=== PATIENT | male | born 1960 | race Caucasian/White ===

== ENCOUNTER 2020-08-16 17:51 | Emergency (ER) | payer BC ==
[2020-08-16 17:56] VITALS: BP 164/101; PULSE 65; RESP 16; TEMP 98.3
[2020-08-16] MEDS ORDERED: LIDOCAINE 1% INJ 10MG/ML (20 ML MDV) SQ ONE (18:00)
[2020-08-16] MEDS ORDERED: DIPH,PERTUS(ACELL)TETVAC-LF 0.5 ML VIAL IM ONE (18:01)
[2020-08-16] MEDS ORDERED: BACITRACIN OINT 1 EACH PACKET TOPICAL ONE (18:25)
--- NOTE | 2020-08-16 18:31 | ED ---
General Adult HPI - General Chief complaint: Wound/Laceration Stated complaint: thumb lac Time Seen by Provider: 08/16/20 18:00 Source: patient, RN notes reviewed, old records reviewed Mode of arrival: ambulatory Limitations: no limitations - History of Present Illness Initial comments: 59-year-old male presenting with laceration to left thumb. Patient was cutting drywall, and slipped with a utility knife, lacerating the palmar and medial aspect of the left thumb. No other injury. Patient is uncertain of tetanus status. - Related Data Home Medications Medication Instructions Recorded Confirmed Calcium Carbonate [Calcium] 600 mg PO DAILY 08/01/15 08/01/15 Joint Health Packs 1 pack PO DAILY 08/01/15 08/01/15 Magnesium 200 mg PO DAILY 08/01/15 08/01/15 Multivitamins, Thera [Multivitamin] 1 tab PO DAILY 08/01/15 08/01/15 [place]-3 Fatty Acids/Fish Oil [Fish 1 cap PO DAILY 08/01/15 08/01/15 Oil 1,000 mg Softgel] Vitamin B Complex 1 cap PO DAILY 08/01/15 08/01/15 Previous Rx's Medication Instructions Recorded Cephalexin [Keflex] 500 mg PO Q12HR #20 cap 08/16/20 Allergies Allergy/AdvReac Type Severity Reaction Status Date / Time No Known Allergies Allergy Verified 08/01/15 10:32 Review of Systems ROS Statement: Those systems with pertinent positive or pertinent negative responses have been documented in the HPI. ROS Other: All systems not noted in ROS Statement are negative. Past Medical History Past Medical History: Osteoarthritis (OA) Additional Past Medical History / Comment(s): 08/01/15 Pt presented to [facility] ER with L flank pain which woke him this AM about 0400. Pain radiates from the L flank towrds the L groin and towards genital. He is being admitted with clinical impression of calulus of the kidney. History of Any Multi-Drug Resistant Organisms: None Reported Past Surgical History: Appendectomy, Orthopedic Surgery, Tonsillectomy Additional Past Surgical History / Comment(s): R heel surgery after nail injury. Past Anesthesia/Blood Transfusion Reactions: No Reported Reaction Past Psychological History: No Psychological Hx Reported Smoking Status: Never smoker Past Alcohol Use History: None Reported Past Drug Use History: None Reported - Past Family History Father Family Medical History: Cancer Additional Family Medical History / Comment(s): Father of cancer-pt unsure which type. Mother Family Medical History: No Reported History Additional Family Medical History / Comment(s): Mother is healthy and 72 yrs old. General Exam Limitations: no limitations General appearance: alert, in no apparent distress Head exam: Present: atraumatic, normocephalic Eye exam: Present: normal appearance, PERRL ENT exam: Present: normal exam Neck exam: Present: normal inspection. Absent: tenderness, meningismus Respiratory exam: Present: normal lung sounds bilaterally. Absent: respiratory distress, wheezes Cardiovascular Exam: Present: regular rate, normal rhythm GI/Abdominal exam: Present: soft. Absent: distended, tenderness Extremities exam: Present: other (37 laceration on the left thumb palmar and medial portion. This laceration is deep, patient has good range of motion, do not specifically see a tendon injury.) Course Vital Signs 08/16/20 17:52 Temperature 98.3 F Pulse Rate 65 Respiratory 16 Rate Blood Pressure 164/101 O2 Sat by Pulse 100 Oximetry Procedures - Laceration Laceration #1 Consent Obtained: verbal consent Indication: laceration Site: hand Size (cm): 3 Description: linear Depth: simple, single layer, involves muscle layer Anesthetic Used: lidocaine 1% Anesthesia Technique: local infiltration Amount (mls): 5 Pre-repair: wound explored, irrigated extensively Type of Sutures: nylon Size of Sutures: 4-0 Number of Sutures: 6 Technique: simple, interrupted Complications: pain Patient Tolerated Procedure: well Additional Comments: Patient has good range of motion, the laceration is quite deep but I do not specifically see a tendon injury. Medical Decision Making - Medical Decision Making Laceration is repaired after copious irrigation with tap water, wound is cleansed. The laceration is deep but I do not specifically see a tendon injury and the patient has good range of motion of the left thumb. Laceration repaired with nylon suture. Patient will be started on antibiotics, he will follow-up with hand surgeon who he has seen in the past with various injuries. Disposition Clinical Impression: Laceration, Laceration of hand Disposition: HOME SELF-CARE Condition: Good Instructions (If sedation given, give patient instructions): Laceration (ED), Care For Your Stitches (DC) Prescriptions: Cephalexin [Keflex] 500 mg PO Q12HR #20 cap Is patient prescribed a controlled substance at d/c from ED?: No Referrals: Mariana Sierra MD [Primary Care Provider] - 1-2 days Ruslan Vizcaino DO [Doctor of Osteopathic Medicine] - 1-2 days Time of Disposition: 18:30
== END 2020-08-16 18:47 | disposition home or self-care (01) ==
LOC: EC 17:51
DX: S61.012A Laceration without foreign body of left thumb without damage to nail, initial encounter (principal); M19.90 Unspecified osteoarthritis, unspecified site; W26.0XXA Contact with knife, initial encounter
CPT/HCPCS: 90715; 99282; 90471; 12042; J2001

== ENCOUNTER 2020-09-01 11:28 | Emergency (ER) | payer BC ==
[2020-09-01 12:15] VITALS: BP 145/82; PULSE 58; RESP 20; TEMP 98
--- NOTE | 2020-09-01 12:43 | XR ---
EXAMINATION TYPE: XR hand complete RT DATE OF EXAM: 09/01/2020 COMPARISON: None HISTORY: Pain, laceration CT DLP: mGycm Automated exposure control for dose reduction was used. Contrast: None Technique: Three-view right hand FINDINGS: No acute fracture or dislocation is evident. Soft tissues appear unremarkable. No radiopaque foreign bodies are evident. Some chronic changes appear to be in the proximal diaphyseal fifth metacarpal.. IMPRESSION: 1. NO ACUTE OSSEOUS ABNORMALITY. 2. NO RADIOPAQUE FOREIGN BODIES.
[2020-09-01] MEDS ORDERED: LIDOCAINE 1% INJ 10MG/ML (20 ML MDV) SQ ONE (13:03)
--- NOTE | 2020-09-01 13:57 | ED ---
General Adult HPI - General Chief complaint: Extremity Injury, Upper Stated complaint: Hand injury Time Seen by Provider: 09/01/20 13:03 Source: patient Mode of arrival: ambulatory Limitations: no limitations - History of Present Illness Initial comments: 60-year-old male without a significant past medical history presents to the emergency department for a chief complaint of right hand laceration. Patient reports he got his hand stuck between a truck bed and a forklift. States that it caused a laceration. Patient states he can move his fingers without difficulty. Tetanus is up-to-date. He denies any other injuries.Patient has no other complaints at this time including shortness of breath, chest pain, abdominal pain, nausea or vomiting, headache, or visual changes. - Related Data Home Medications Medication Instructions Recorded Confirmed Calcium Carbonate [Calcium] 600 mg PO DAILY 08/01/15 08/01/15 Joint Health Packs 1 pack PO DAILY 08/01/15 08/01/15 Magnesium 200 mg PO DAILY 08/01/15 08/01/15 Multivitamins, Thera [Multivitamin] 1 tab PO DAILY 08/01/15 08/01/15 [place]-3 Fatty Acids/Fish Oil [Fish 1 cap PO DAILY 08/01/15 08/01/15 Oil 1,000 mg Softgel] Vitamin B Complex 1 cap PO DAILY 08/01/15 08/01/15 Previous Rx's Medication Instructions Recorded Cephalexin [Keflex] 500 mg PO Q12HR #20 cap 08/16/20 Cephalexin [Keflex] 500 mg PO Q6HR 5 Days #20 cap 09/01/20 Allergies Allergy/AdvReac Type Severity Reaction Status Date / Time No Known Allergies Allergy Verified 09/01/20 12:15 Review of Systems ROS Statement: Those systems with pertinent positive or pertinent negative responses have been documented in the HPI. ROS Other: All systems not noted in ROS Statement are negative. Past Medical History Past Medical History: Osteoarthritis (OA) Additional Past Medical History / Comment(s): 08/01/15 Pt presented to [facility] ER with L flank pain which woke him this AM about 0400. Pain radiates from the L flank towrds the L groin and towards genital. He is being admitted with clinical impression of calulus of the kidney. History of Any Multi-Drug Resistant Organisms: None Reported Past Surgical History: Appendectomy, Orthopedic Surgery, Tonsillectomy Additional Past Surgical History / Comment(s): R heel surgery after nail injury. Past Anesthesia/Blood Transfusion Reactions: No Reported Reaction Past Psychological History: No Psychological Hx Reported Smoking Status: Never smoker Past Alcohol Use History: None Reported Past Drug Use History: None Reported - Past Family History Father Family Medical History: Cancer Additional Family Medical History / Comment(s): Father of cancer-pt unsure which type. Mother Family Medical History: No Reported History Additional Family Medical History / Comment(s): Mother is healthy and 72 yrs old. General Exam - General Exam Comments Initial Comments: Right hand: Patient is a 5 cm laceration through the palmar aspect of the right hand around the fourth and fifth metacarpal heads. No obvious tendon injury. Full range of motion of the right fourth and fifth digits. He also has a 3 cm laceration through the palmar aspect of the right fourth digit, proximal phalanx. No obvious tendon injury or laceration. No foreign bodies. Capillary refill less than 2 seconds in all digits of the right hand. Radial pulses 2+. Sensation intact in all digits. Limitations: no limitations General appearance: alert, in no apparent distress Head exam: Present: atraumatic, normocephalic, normal inspection Eye exam: Present: normal appearance, PERRL, EOMI. Absent: scleral icterus, conjunctival injection, periorbital swelling ENT exam: Present: normal exam, mucous membranes moist Neck exam: Present: normal inspection. Absent: tenderness, meningismus, lymphadenopathy Respiratory exam: Present: normal lung sounds bilaterally. Absent: respiratory distress, wheezes, rales, rhonchi, stridor Cardiovascular Exam: Present: regular rate, normal rhythm, normal heart sounds. Absent: systolic murmur, diastolic murmur, rubs, gallop, clicks Course Vital Signs 09/01/20 12:12 Temperature 98.0 F Pulse Rate 58 L Respiratory 20 Rate Blood Pressure 145/82 O2 Sat by Pulse 100 Oximetry Procedures - Laceration Laceration #1 Consent Obtained: verbal consent Indication: laceration Site: hand Size (cm): 5 Description: linear Depth: simple, single layer Anesthetic Used: lidocaine 1% Anesthesia Technique: local infiltration Amount (mls): 5 Pre-repair: wound explored, irrigated extensively Type of Sutures: nylon Size of Sutures: 4-0 Number of Sutures: 10 Technique: simple, interrupted Patient Tolerated Procedure: well, no complications Laceration #2 Consent Obtained: verbal consent Indication: laceration Site: hand (right 4th digit) Description: linear Depth: simple, single layer Anesthetic Used: lidocaine 1% Anesthesia Technique: local infiltration Amount (mls): 2 Pre-repair: wound explored, irrigated extensively (with saline pressure irrigation) Type of Sutures: nylon Size of Sutures: 4-0 Number of Sutures: 7 Technique: simple, interrupted Patient Tolerated Procedure: well, no complications Medical Decision Making - Medical Decision Making X-ray of the right hand is negative. No acute osseous abnormality or foreign bodies. Lacerations are repaired. No obvious deep structure injury. Tetanus is up-to-date. Patient was started on Keflex. Recommend he follow up with primary care. He'll return here for any worsening symptoms. Disposition Clinical Impression: Laceration of hand Disposition: HOME SELF-CARE Condition: Good Instructions (If sedation given, give patient instructions): Care For Your Stitches (ED), Laceration (ED) Additional Instructions: Please keep the wound clean with gentle soap and water. Apply antibiotic ointment daily. Follow up with your doctor for a recheck. Return to the emergency department for any worsening symptoms. Return in 10 days for suture removal. Prescriptions: Cephalexin [Keflex] 500 mg PO Q6HR 5 Days #20 cap Is patient prescribed a controlled substance at d/c from ED?: No Referrals: Mariana Sierra MD [Primary Care Provider] - 1-2 days Time of Disposition: 13:52
[2020-09-01] MEDS ORDERED: CEPHALEXIN 500MG STARTER PACK 4 CAP BTL PO STA (13:59)
== END 2020-09-01 14:17 | disposition home or self-care (01) ==
LOC: EC 11:28
DX: S61.214A Laceration without foreign body of right ring finger without damage to nail, initial encounter (principal); M19.90 Unspecified osteoarthritis, unspecified site; W23.0XXA Caught, crushed, jammed, or pinched between moving objects, initial encounter
CPT/HCPCS: 73130; 99283; 12042; J2001